=== PATIENT | female | born 1975 | race Caucasian/White ===

== ENCOUNTER 2025-02-18 13:38 | Emergency (ER) | payer OTHER, SELFPAY ==
--- NOTE | ~2025-02-18 | XR_ITS ---
XR chest 2V Ordering provider: Carlos Maher MD History: 49 years Female with . CHEST PAIN . Comparison: None. FINDINGS: MEDIASTINUM: The cardiac silhouette is not enlarged. LUNGS: No infiltrates, effusions or pneumothorax. OTHER: Healing fracture is seen in the right ninth rib. No free air under the diaphragm. IMPRESSION: No acute cardiopulmonary pathology. Healing fracture in the right ninth rib. Reviewed, dictated and finalized at location A.
[2025-02-18 13:40] VITALS: BP 149/94; PULSE 79; RESP 20; TEMP 36.7; O2SAT 97
--- NOTE | 2025-02-18 13:40 | ECG_ITS ---
Test Date: 2025-02-18 13:43:52 Measurements Intervals [place] Rate: 79 P: 45 RI: 169 QRS: 39 QRSD: 81 T: 30 QT: 383 QTc: 439 Interpretive Statements SINUS RHYTHM BASELINE ARTIFACT- I, II, III, AVR, AVL, AVF, V4-V6 NORMAL ECG No previous ECG available for comparison Electronically Signed On 02-18-2025 15:47:32 CDT by Charles Patel D.O.
[2025-02-18 14:13] LABS: Basophils Absolute Auto 0.1 K/mm3 (0.0-0.1); Basophils Percent Auto 0.8 % (0.2-1.2); Eosinophils Absolute Auto 0.1 K/mm3 (0-0.3); Eosinophils Percent Auto 0.9 % (0-4.4); Hematocrit 39.2 % (37.0-47.0); Hemoglobin 12.8 g/dL (12.0-15.0); Immature Granulocyte Absolute 0.05 K/mm3 (0.00-0.031); Immature Granulocyte Percent A 0.8 % (0-0.5); Lymphocytes Absolute Auto 2.07 K/mm3 (0.9-3.2); Lymphocytes Percent Auto 32.3 % (18.3-44.2); Mean Corpuscular HGB Conc 32.7 g/dl (32-36); Mean Corpuscular Hemoglobin 31.5 pg (26-34); Mean Corpuscular Volume 96.6 fl (80-100); Mean Platelet Volume 9.7 fl (7.4-10.4); Monocytes Absolute Auto 0.4 K/mm3 (0.1-0.6); Monocytes Percent Auto 6.7 % (2.6-8.5); Neutrophils Absolute Auto 3.7 K/mm3 (1.3-6.7); Neutrophils Percent Auto 58.5 % (45.5-73.1); Platelet Count Result 268 k/mm3 (150-375); Red Blood Count 4.06 M/mm3 (4.2-5.4); Red Cell Distribution Width 12.4 % (11.5-14.5); White Blood Count 6.4 K/mm3 (4.5-10.0)
[2025-02-18 14:19] LABS: Alanine Aminotransferase 50 U/L (6-35); Albumin Level 4.5 g/dL (3.5-5.1); Alkaline Phosphatase 68 U/L (38-126); Anion Gap 12 mmol/L (4-12); Aspartate Amino Transferase 38 U/L (14-36); Bilirubin,Total 0.5 mg/dL (0.2-1.3); Blood Urea Nitrogen 13 mg/dL (7-17); Calcium 9.8 mg/dL (8.4-10.2); Carbon Dioxide 23 mmol/L (22-30); Chloride 102 mmol/L (98-107); Estimated CRCL calculation 103 ml/min; Estimated Glomerular Filt Rate > 60; Glucose 99 mg/dL (65-110); Lipase 175 U/L (23-300); Potassium 4.2 mmol/L (3.4-5.0); Sodium 137 mmol/L (137-145)
[2025-02-18 14:20] LABS: INR 0.9; Prothrombin Time 12.1 Seconds (11.1-14.7)
[2025-02-18 14:21] LABS: Partial Thromboplastin Time 29.3 Seconds (22.3-36.8)
[2025-02-18 14:30] LABS: Troponin I < 0.012 ng/mL (0.000-0.034)
[2025-02-18 15:16] VITALS: O2SAT 98
--- NOTE | 2025-02-18 15:34 | ED.GENADULT ---
HPI - General Adult General Chief complaint: Chest Pain Stated complaint: cp, dizzy Time Seen by Provider: 02/18/25 15:16 History of Present Illness HPI narrative: 49-year-old female presents to the emergency department for evaluation epigastric pain that radiates into her back. Patient states that the pain has been ongoing since last night. Patient denies any prior cardiac history, denies any history of PE or DVT but does report worsening heartburn over the last few days. Patient states she has been taking some ibuprofen but normal than usual. Patient denies any heavy alcohol use. Patient is anxious upon arrival to the emergency department Related Data Allergies Allergy/AdvReac Type Severity Reaction Status Date / Time Penicillins Allergy Mild Vomiting Verified 02/18/25 13:39 Review of Systems Review of Systems: All systems reviewed & are unremarkable except as noted in HPI and below Exam Narrative: APPEARANCE: Well appearing, no pain, no distress, well-nourished. HEAD: normocephalic, atraumatic. EYES: PERRLA/EOMI, conjunctivae clear. NOSE: Normal no drainage EARS:TMS clear with good light reflex. THROAT: Pharynx clear, no exudate. NECK: Supple. No adenopathy, no masses. RESPIRATORY: Airway patent, respirations nonlabored. Clear to auscultation bilaterally, no rales, rhonchi, wheezing. CARDIOVASCULAR: Regular rate and rhythm without murmurs rubs or gallops. ABDOMINAL: Soft, nontender, nondistended, normal bowel sounds MUSCULOSKELETAL: Moves all extremities. Strength/ROM intact, No edema, No calf tenderness. NEURO: Alert. Cranial nerves II through XII intact. Good gait. Good coordination SKIN: Warm, dry. Normal Color PSYCHIATRIC: Normal affect/mood. Course Vital Signs Vital signs: Vital Signs Temperature 98.1 F 02/18/25 13:40 Pulse Rate 79 02/18/25 13:40 Respiratory Rate 20 02/18/25 13:40 Blood Pressure 149/94 H 02/18/25 13:40 Pulse Oximetry 97 02/18/25 13:40 Oxygen Delivery Room Air 02/18/25 13:40 Temperature 98.1 F 02/18/25 13:40 Pulse Rate 82 02/18/25 17:37 Respiratory Rate 16 02/18/25 17:37 Blood Pressure 132/82 02/18/25 17:37 Pulse Oximetry 100 02/18/25 17:37 Oxygen Delivery Room Air 02/18/25 15:16 Medical Decision Making [facility] Narrative Medical decision making narrative: 49-year-old female presents emergency department for evaluation for epigastric pain. Patient had negative serial EKGs and negative troponins. Patient was treated with famotidine, Protonix and a GI cocktail. Feel improved with treatment. Differential Diagnosis Differential Diagnosis: ACS, pulmonary embolism, pneumonia, pneumothorax, esophagitis, gastritis Vital Signs Vital Signs: Vital Signs Temperature 98.1 F 02/18/25 13:40 Pulse Rate 79 02/18/25 13:40 Respiratory Rate 20 02/18/25 13:40 Blood Pressure 149/94 H 02/18/25 13:40 Pulse Oximetry 97 02/18/25 13:40 Oxygen Delivery Room Air 02/18/25 13:40 Temperature 98.1 F 02/18/25 13:40 Pulse Rate 82 02/18/25 17:37 Respiratory Rate 16 02/18/25 17:37 Blood Pressure 132/82 02/18/25 17:37 Pulse Oximetry 100 02/18/25 17:37 Oxygen Delivery Room Air 02/18/25 15:16 Lab Data Lab results reviewed: Yes I reviewed the patient's lab results. 02/18/25 14:01 02/18/25 14:01 Labs: Lab Results 02/18/25 02/18/25 Range/Units 14:01 18:22 WBC 6.4 (4.5-10.0) K/mm3 RBC 4.06 L (4.2-5.4) M/mm3 Hgb 12.8 (12.0-15.0) g/dL Hct 39.2 (37.0-47.0) % MCV 96.6 (80-100) fl MCH 31.5 (26-34) pg MCHC 32.7 (32-36) g/dl RDW 12.4 (11.5-14.5) % Plt Count 268 (150-375) k/mm3 MPV 9.7 (7.4-10.4) fl Immature Gran % (Auto) 0.8 H (0-0.5) % Neut % (Auto) 58.5 (45.5-73.1) % Lymph % (Auto) 32.3 (18.3-44.2) % [place] % (Auto) 6.7 (2.6-8.5) % Eos % (Auto) 0.9 (0-4.4) % Baso % (Auto) 0.8 (0.2-1.2) % Lymph # (Auto) 2.07 (0.9-3.2) K/mm3 [place] # (Auto) 0.4 (0.1-0.6) K/mm3 Eos # (Auto) 0.1 (0-0.3) K/mm3 Baso # (Auto) 0.1 (0.0-0.1) K/mm3 Abs Immat Gran (auto) 0.05 H (0.00-0.031) K/mm3 Absolute Neuts (auto) 3.7 (1.3-6.7) K/mm3 Absolute Nucleated RBC 0.000 (0.0-0.012) K/mm3 Nucleated RBC % 0.0 (0.0-0.2) % PT 12.1 (11.1-14.7) Seconds INR 0.9 APTT 29.3 (22.3-36.8) Seconds D-Dimer 0.31 (<0.48) ug/mL Sodium 137 (137-145) mmol/L Potassium 4.2 (3.4-5.0) mmol/L Chloride 102 (98-107) mmol/L Carbon Dioxide 23 (22-30) mmol/L Anion Gap 12 (4-12) mmol/L BUN 13 (7-17) mg/dL Creatinine 0.63 L (0.7-1.0) mg/dL Estim Creat Clear Calc 103 ml/min Estimated GFR > 60 (59 - ) Glucose 99 (65-110) mg/dL Calcium 9.8 (8.4-10.2) mg/dL Total Bilirubin 0.5 (0.2-1.3) mg/dL AST 38 H (14-36) U/L ALT 50 H (6-35) U/L Alkaline Phosphatase 68 (38-126) U/L Troponin I < 0.012 < 0.012 (0.000-0.034) ng/mL Total Protein 8.0 (6.3-8.2) g/dL Albumin 4.5 (3.5-5.1) g/dL Lipase 175 (23-300) U/L Imaging Data Radiologist's impression: Impressions Chest X-Ray 02/18/25 14:47 IMPRESSION: No acute cardiopulmonary pathology. Healing fracture in the right ninth rib. Discharge Plan Discharge Clinical Impression: Epigastric abdominal pain Patient Disposition: Home Condition: Stable Instructions: Antibiotic Form, Diet for Stomach Ulcers and Gastritis (ED), Abdominal Pain (ED) Additional Instructions: Avoid alcohol and avoid NSAIDs. Omeprazole as directed for the next 14 days. Maalox as needed for intermittent epigastric pain. Have close follow-up with GI. If you have any worsening symptoms and please call or return to the emergency department. Have close follow-up with your primary care physician for additional outpatient cardiac testing. Patient Language: Bhutanese Prescriptions: New omeprazole 20 mg capsule,delayed release(DR/EC) 20 mg PO DAILY 14 Days Qty: 14 0RF Follow-up/Referrals: Pro Urena MD [Physician] - UNKNOWN,DOCTOR [Primary Care Provider] - Quality HEART score for chest pain patients History: slightly suspicious ECG: normal Age: > 45 and < 65 years Risk factors: no risk factors known Troponin: < or = to 1x normal limit Heart score: 1
--- OUTSIDE RECORDS SUMMARY | 2025-02-18 15:40 | XMS_ITS | Clinical Summary ---
Author Organization [facility] Address [facility] [place] [address] Care Team Providers Care Molasses Feed Mixer Name Role Phone Unavailable Primary Care Provider Unavailabl e Source Comments [facility],non-owned Affiliates and Associated Physician Practices is amultiple site organization consisting of ambulatory clinics and hospital sitesin [place], [place], [place] and [place]. This disclosure is being madepursuant to the Care Everywhere program and may not contain all information available regarding this patient. Last updated 18.[facility] Allergies Active Allergy Reactions Criticality Noted Date Comments Penicillins Nausea and/or Vomiting 09/27/2009 Medications * Be aware that medications may not be up to date on this document. Alwaysverify current medications with the patient. ACYCLOVIR PO Take 1 Tab by mouth once daily. Active SERTRALINE HCL PO Take 1 Tab by mouth once daily. Active metoclopramide (REGLAN) 10 MG tablet Take 1 Tab by mouth every 6 hours as needed for Nausea/Vomi ting. 30 Tab 0 11/06/2013 Active omeprazole (PRILOSEC) 40 MG capsule Take 1 Cap by mouth daily before breakfast. 30 Cap 0 11/06/2013 Active Active Problems Problem Noted Date Diagnosed Date Syncope and collapse 09/27/2009 Overview (10/01/2009): Recurrent Echo OK 12/04 Holter neg 12/04 Dr. Reza: likely not cardiac EEG 10/03 Depression 09/27/2009 Overview (09/27/2009): untreated Tobacco use disorder 09/27/2009 Mild Seasonal Allergic Rhinitis 12/05/2008 Human papillomavirus in cond itions classified elsewhere and of unspecified site 12/05/2008 Resolved Problems Problem Noted Date Diagnosed Date Resolved Date Nausea with vomiting 09/27/2009 009 Palpitations 09/27/2009 09/29/2009 Immunizations Immunization Administration Dates Next Due INFLUENZA VACCINE 07/26/2007 TD VACCINE 05/26/2005 Family History Medical History Relation Name Comments Diabetes Father Cancer - Prostate Maternal Grandfather Hypertension Maternal Grandfather Stroke Paternal Grandfather Relation Name Status Comments Father Maternal Grandfather Paternal Grandfather Social History Tobacco Use Types Packs/Day Years Used Date Smoking Tobacco: Every Day Cigarettes Comments:2 cig per weeik Alcohol Use Standard Drinks/Week Comments No 0 (1 standard drink = 0.6 oz pur e alcohol) remission since 2004 Comments No Sex and Gender Information Value Date Recorded Sex Assigned at Not on file Legal Sex Female 6:29 AM [employer] Gender Identity Not on file Sexual Orientation Not on file Last Filed Vital Signs Vital Sign Reading Time Taken Comments Blood Pressure 103/61 11/06/2013 1:17 AM [employer] Pulse 68 11/06/2013 1:17 AM [employer] Temperature 36.8 C (98.3 F) 11/06/2013 1:17 AM [employer] Respiratory Rate 16 11/06/2013 1:17 AM [employer]ER Oxygen Saturation 100% 11/06/2013 1:17 AM [employer]ER Inhaled Oxygen Concentration - - Weight 61.2 kg (135 lb) 11/05/2013 7:23 PM [employer] Height 167.6 cm (5' 6 ) 11/05/2013 7:23 PM [employer] Body Mass Index 21.79 11/05/2013 7:23 PM [employer] Plan of Treatment Health Maintenance Due Date Last Done Comments COLOGUARD (AGES 45-75) - COL ON CA SCREENING 1977 COLON MONITORING 1977 COLONOSCOPY - COLON CA SCREENING 1977 CT COLONOGRAPHY - COLON CA SCREENING 1977 Colorectal Cancer Screening 1977 FIT - COLON CA SCREENING 1977 FLEX SIG - COLON CA SCREENING 1977 LIPID TESTING 1977 MAMMOGRAM 1977 HIV SCREENING 1992 HEPATITIS C SCREENING 12/26/1995 HEPATITIS B VACCINE (1 of 3 - 19+ 3-dose series) 1996 PNEUMOCOCCAL VACCINE (1 of 2 - PCV) 1996 DTAP/TDAP/TD VACCINES (2 - T d or Tdap) 05/26/2015 05/26/2005 COVID-19 VACCINE (1 - 2023-2 5 season) 2024 DEPRESSION SCREENING 10/26/2024 INFLUENZA VACCINE (Season Ended) 2025 07/26/20 07 ZOSTER VACCINE (1 of 2) 12/31/2027 HIB VACCINE Aged Out No longer eligi ble based on patient's age to complete this topic HPV VACCINE Aged Out No longer eligi ble based on patient's age to complete this topic MENINGOCOCCAL (Group B) VACC INE SHARED DECISION-MAKING Aged Out No longer eligibl e based on patient's age to complete this topic MENINGOCOCCAL GROUPS A/C/Y/W VACCINE Aged Out No longer eligible b ased on patient's age to complete this topic Insurance [facility] Advance Directives * Full Code (Latest Code Status on File) Date Activated Date Inactivated Comments 09/27/2009 4:16 PM
--- OUTSIDE RECORDS SUMMARY | 2025-02-18 15:40 | XMS_ITS | Clinical Summary ---
Author Organization [facility] Address [address] [facility] [place] [address] Care Team Providers Care Sort Manager Name Role Phone Cara Durant MD Primary Care Prov ider Allergies Active Allergy Reactions Criticality Noted Date Comments Penicillins Nausea and Vomiting High 09/27/2009 Cerner Allergy Text Annotation: penicillins Medications Acyclovir 100 % Powder Take 1 Tablet by mouth daily. Active loratadine (CLARITIN) 10 mg tabletIndicati ons:Seasonal allergic rhinitis due to pollen Take 1 Tablet (10 mg) by mouth daily. 100 Tablet 02/01/20 25 Active fluticasone propionate (FLONASE) 50 mcg/spray [place], Suspension nasal inhalerIndicat ions:Seasonal allergic rhinitis due to pollen Administer 2 Sprays in each nostril daily. 16 Gram 1 02/01/20 25 Active naproxen (NAPROSYN) 375 mg tabletIndicati ons:Arthralgia of both elbows Take 1 Tablet (375 mg) by mouth 2 times daily as needed for Pain, Moderate. Take WITH food. 50 Tablet 1 02/01/20 25 Active sertraline (ZOLOFT) 100 mg tabletIndicati ons:Generalize d anxiety disorder,Recur rent major depressive disorder, in full remission Take 1 Tablet (100 mg) by mouth daily. 100 Tablet 2 02/01/20 25 Active valACYclovir (VALTREX) 500 mg tabletIndicati ons:HSV (herpes simplex virus) infection Take 1 Tablet (500 mg) by mouth daily. 100 Tablet 3 02/01/20 25 Active rizatriptan (MAXALT [employer]IO [employer]ER [employer]OM[employer]BILE) 10 mg Tablet, Rapid DissolveIndica tions:Migraine without aura and without status migrainosus, not intractable Place 1 Tablet (10 mg) inside cheek every 2 hours as needed for Migraine. may repeat in 2 hours; max dose 30mg in 24 hours 9 Tablet 3 02/01/20 25 Active valACYclovir (VALTREX) 500 mg tabletIndicati ons:HSV (herpes simplex virus) infection Take 1 Tablet (500 mg) by mouth daily. 100 Tablet 3 10/29/19 24 025 Discontinued(R eorder) rizatriptan (MAXALT RADIO INSTALLER AUTOMOBILE) 10 mg Tablet, Rapid DissolveIndica tions:Migraine without aura and without status migrainosus, not intractable Place 1 Tablet (10 mg) inside cheek every 2 hours as needed for Migraine. may repeat in 2 hours; max dose 30mg in 24 hours 9 Tablet 3 10/29/19 24 025 Discontinued(R eorder) sertraline (ZOLOFT) 50 mg tabletIndicati ons:Generalize d anxiety disorder,Recur rent major depressive disorder, in full remission Take 1 Tablet (50 mg) by mouth daily. Need appointment for future refills 30 Tablet 12/19/19 25 025 Discontinued sertraline (ZOLOFT) 100 mg tablet Take 1 Tablet by mouth daily. 025 Discontinued(R eorder) naproxen (NAPROSYN) 375 mg tabletIndicati ons:Arthralgia of both elbows Take 1 Tablet (375 mg) by mouth 2 times daily as needed for Pain, Moderate. Take WITH food. 50 Tablet 1 02/01/20 25 025 Discontinued Active Problems Problem Noted Date Diagnosed Date Migraine without aura and wi thout status migrainosus, not intractable 10/30/2023 Generalized anxiety disorder 10/29/2023 Recurrent major depressive disorder, in full rem ission 10/29/2023 Cough 07/17/2022 Seizure 07/17/2021 Overview (01/31/2025): 2020; was told stress related? nothing found in work up; seen in ER for seizure concern 04/2022 Herpes simplex 07/17/2021 Anxiety 05/10/2013 Genital herpes 05/10/2013 Chest pain 05/13/2012 Depression 09/27/2009 Overview (01/31/2025): untreated Syncope and collapse 09/27/2009 Overview (01/31/2025): Recurrent Echo OK 12/04 Holter neg 12/04 Dr. Reza: likely not cardiac EEG 10/03 Tobacco use disorder 09/27/2009 Seasonal allergic rhinitis 12/05/2008 Human papillomavirus (HPV) D NA detected in cervical specimen 12/05/2008 Encounters Date Type Department Care Team Description 02/07/2025 External Device Data [facility] ABSTRACTION Provider, Abstract 01/31/2025 11:00 AM CDT Office Visit [address] [phone] Cara Durant MD Bilateral carpal tunnel syndrome (Primary Dx); Generalized anxiety disorder; Recurrent major depressive disorder, in full remission; Arthralgia of both elbows; Screening for cardiovascular condition; Screening for diabetes mellitus; Migraine without aura and without status migrainosus, not intractable; Seasonal allergic rhinitis due to pollen; HSV (herpes simplex virus) infection; Seizure disorder ([facility]); Breast cancer screening by mammogram 01/31/[address] [phone] Cara Durant MD Medication Review 01/28/[address] [phone] Bonnie Hay PA-C HSV (herpes simplex virus) infection; Generalized anxiety disorder; Recurrent major depressive disorder, in full remission 12/16/[address] [phone] Bonnie Hay PA-C Generalized anxiety disorder; Recurrent major depressive disorder, in full remission from Last 3 Months Immunizations Immunization Administration Dates Next Due INFLUENZA VACCINE QUADRIVALENT 6 MOS UP PF IM Influenza, Unspecified Formulation 07/26/2007 Td(adult) Unspecified Formulation 05/26/2005 Family History Medical History Relation Name Comments Diabetes Father Hypertension Maternal Grandmother Stroke Maternal Grandmother Heart Disease Mother Hypertension Mother Relation Name Status Comments Father Maternal Grandmother Mother Social History Tobacco Use Types Packs/Day Years Used Date Smoking Tobacco: Former Cigarettes 0.5 8 2 002 - 2009 Smokeless Tobacco: Never Alcohol Use Standard Drinks/Week Comments Yes 0 (1 standard drink = 0.6 oz pur e alcohol) 10-12 a week Comments No Sex and Gender Information Value Date Recorded Sex Assigned at Not on file Legal Sex Female 9:45 PM CDT Gender Identity Not on file Sexual Orientation Not on file Last Filed Vital Signs Vital Sign Reading Time Taken Comments Blood Pressure 130/78 01/31/2025 10:33 AM CDT Pulse 87 01/31/2025 10:33 AM CDT Temperature - - Respiratory Rate 16 01/31/2025 10:33 AM CDT Oxygen Saturation 99% 01/31/2025 10:33 AM CDT Inhaled Oxygen Concentration - - Weight 89 kg (196 lb 4.8 oz) 01/31/2025 10:33 AM CDT Height 167.6 cm (5' 6 ) 01/31/2025 10:33 AM CDT Body Mass Index 31.68 01/31/2025 10:33 AM CDT Plan of Treatment Upcoming Encounters Date Type Department Care Team (Late st Contact Info) Description 05/02/2025 11:00 AM CDT Office Visit [facility] [address] [phone] Cara Durant MD [address] [place] [phone] Health Maintenance Due Date Last Done Comments Pre-Diabetes and Diabetes Screening 1977 HEPATITIS B VACCINES (1 of 3 - 19+ 3-dose series) 04/1997 HPV/Cotest (21-29) 1998 DTAP/TDAP/TD VACCINES (1 - Tdap) 05/27/2005 05/26/20 05 CERVICAL CANCER SCREENING 12/31/2007 HPV/Cotest (30-65) 12/31/2007 PAP SMEAR 12/31/2007 BREAST CANCER SCREENING 2017 COLORECTAL SCREENING 2022 Colorectal Cancer Screening 2022 FIT-DNA Q 3 years 2022 FIT/FOBT Q 1 year 2022 Flex Sig/CT Colonography Q 5 years 2022 INFLUENZA VACCINE (#1) 2024 10/29/2023 Preventative Visit- Commercial 10/26/2024 10/29/2023 Insurance [facility] [employer] [id number] Care Teams Sort Manager Relationship Specialty Start Date End Date Cara Durant MD [address] [place] [phone] PCP - General Family Practice 08/02/24
[2025-02-18] MEDS: BELLADONNA ALK/PHENOB ELIX 10 ML, MAG HYDROX/ALUMINUM HYD/SIMETH 30 ML, LIDOCAINE 2% VI... PO (15:44)
[2025-02-18] MEDS: FAMOTIDINE 20 MG/2 ML VIAL IV PUSH (15:50)
[2025-02-18] MEDS: PANTOPRAZOLE SODIUM IV 40 MG VIAL IV PUSH (15:50)
[2025-02-18] MEDS: LORazepam INJ (*CRX) 2 MG/ML VIAL 1 MG IV PUSH (15:51)
[2025-02-18 16:03] LABS: D Dimer 0.31 ug/mL (<0.48)
[2025-02-18 16:07] VITALS: BP 117/81; PULSE 69; PULSE 73; RESP 18; O2SAT 97
[2025-02-18 17:37] VITALS: BP 132/82; PULSE 82; RESP 16; O2SAT 100
--- NOTE | 2025-02-18 18:28 | ECG_ITS ---
Test Date: 2025-02-18 18:43:55 Measurements Intervals [place] Rate: 72 P: 52 LA: 179 QRS: 37 QRSD: 76 T: 29 QT: 387 QTc: 424 Interpretive Statements SINUS RHYTHM BASELINE ARTIFACT- I, II, III, AVR, AVL, AVF NORMAL ECG Compared to ECG 02/18/2025 13:43:52 No significant changes Electronically Signed On 02-18-2025 20:53:48 CDT by Charles Patel D.O.
[2025-02-18 18:52] LABS: Troponin I < 0.012 ng/mL (0.000-0.034)
== END 2025-02-18 20:13 | disposition home or self-care (01) ==
PROVIDERS: Emergency Provider Emergency Medicine
DX: R10.13 Epigastric pain (principal)
CPT/HCPCS: 36415; 71046; 80053; 83690; 84484; 85025; 85380; 85610; 85730; 93005; 96374; 96375; 99284; A9270; J2060; J2470